=== PATIENT | female | born 1995 | race Two or more races ===

== ENCOUNTER 2019-02-26 08:49 | Emergency (ER) | payer OTHER ==
[~2019-02-26] VITALS: Ht 165.1 cm; Wt 45.4 kg
[2019-02-26 09:34] VITALS: BP 134/77
== END 2019-02-26 10:06 | disposition home or self-care (01) ==
LOC: ER 08:49
DX: S00.03XA Contusion of scalp, initial encounter (principal); W22.8XXA Striking against or struck by other objects, initial encounter; Y93.89 Activity, other specified; Y99.8 Other external cause status; Y92.89 Other specified places as the place of occurrence of the external cause
CPT/HCPCS: 70450